=== PATIENT | male | born 1985 | race Two or more races ===

== ENCOUNTER 2022-09-02 09:30 | Emergency (ER) | payer MEDICARE, OTHER ==
[~2022-09-02] VITALS: Ht 160 cm; Wt 93.0 kg
[2022-09-02 09:39] VITALS: BP 185/109
[2022-09-02 10:20] LABS: Urine Bacteria NONE SEEN /hpf (None Seen); Urine Blood Negative /uL (Negative); Urine Specific Gravity 1.013 (1.001-1.035); Urine WBC 1 /hpf (0 - 3)
[2022-09-02 10:20] LABS: Basophils # (auto) 0.1 10 ^3/uL (0-0.2); Basophils % (auto) 0.8 % (0.0-2.0); Eosinophils # (auto) 0.1 10 ^3/uL (0-0.8); Eosinophils % (auto) 0.8 % (0.0-7.0); Hematocrit 41.3 % (41.0-53.0); Hemoglobin 14.3 g/dL (13.5-17.5); Lymphocytes % (auto) 14.2 % (10.0-50.0); Mean Corpuscular Hemoglobin 30.8 pg (28.0-32.0); Mean Corpuscular Hgb Conc. 34.5 g/dL (32.0-36.0); Mean Corpuscular Volume 89.1 fL (80.0-100.0); Monocytes # (auto) 0.6 10 ^3/uL (0-1.3); Monocytes % (auto) 8.6 % (0.0-12.0); Neutrophils # (auto) 5.2 10 ^3/uL (1.6-8.6); Neutrophils % (auto) 75.6 % (37.0-80.0); Red Blood Cells 4.63 10^6/uL (4.5-5.90); Red Cell Distribution Width 13.5 % (11.8-14.3); White Blood Cell 6.9 10^3/uL (4.4-10.8)
[2022-09-02 10:32] LABS: Calcium 8.6 mg/dL (8.5-10.1); Potassium 3.8 mmol/L (3.5-5.1)
[2022-09-02 10:35] LABS: BUN/Creatinine Ratio 15.4; Bilirubin, Total 0.6 mg/dL (0.2-1.0); Total Protein 7.7 g/dL (6.4-8.2)
[2022-09-02] MEDS ORDERED: FOLITAB22 PO (15:22)
[2022-09-02] MEDS ORDERED: METO-281 PO (15:22)
[2022-09-02] MEDS ORDERED: BISM262C44 PO (15:22)
[2022-09-02] MEDS ORDERED: OMEP-263 PO (15:22)
== END 2022-09-02 15:44 | disposition home or self-care (01) ==
LOC: ER 09:30
DX: K52.9 Noninfective gastroenteritis and colitis, unspecified (principal); F10.10 Alcohol abuse, uncomplicated; Y90.9 Presence of alcohol in blood, level not specified
CPT/HCPCS: 36415; 80053; 81001; 85025; 86850; 86900; 86901

== ENCOUNTER 2023-06-15 20:00 | Inpatient (IN) | payer MEDICARE, OTHER ==
[~2023-06-15] VITALS: Ht 160 cm; Wt 90.0 kg
[~2023-06-15 20:00] MED LIST: BISM262C44 PO; FOLITAB22 PO; METO-281 PO; OMEP-448 PO
[2023-06-15 21:00] VITALS: PULSE 130; RESP 30; O2SAT 96
[2023-06-15 21:10] LABS: Basophils # (auto) 0.1 10 ^3/uL (0-0.2); Basophils % (auto) 1.4 % (0.0-2.0); Eosinophils # (auto) 0 10 ^3/uL (0-0.8); Eosinophils % (auto) 0.2 % (0.0-7.0); Hematocrit 49.7 % (41.0-53.0); Hemoglobin 16.8 g/dL (13.5-17.5); Lymphocytes # (auto) 0.4 10 ^3/uL (0.4-5.4); Lymphocytes % (auto) 3.8 % (10.0-50.0); Mean Corpuscular Hemoglobin 31.2 pg (28.0-32.0); Mean Corpuscular Hgb Conc. 33.7 g/dL (32.0-36.0); Mean Corpuscular Volume 92.5 fL (80.0-100.0); Monocytes # (auto) 0.8 10 ^3/uL (0-1.3); Monocytes % (auto) 9.1 % (0.0-12.0); Neutrophils # (auto) 7.8 10 ^3/uL (1.6-8.6); Neutrophils % (auto) 85.5 % (37.0-80.0); Nucleated Red Blood Cells % 0.1 %; Red Blood Cells 5.38 10^6/uL (4.5-5.90); Red Cell Distribution Width 14.9 % (11.8-14.3); White Blood Cell 9.1 10^3/uL (4.4-10.8)
[2023-06-15 21:25] LABS: Albumin 3.9 g/dL (3.4-5.0); Anion Gap 11 (5-15); Blood Urea Nitrogen 3 mg/dL (7-18); Calcium 8.7 mg/dL (8.5-10.1); Carbon Dioxide 26 mmol/L (21-32); Chloride 99 mmol/L (98-107); Glucose 125 mg/dL (74-106); Potassium 3.3 mmol/L (3.5-5.1); Sodium 136 mmol/L (136-145)
[2023-06-15 21:27] LABS: Alanine Aminotransferase 94 U/L (16-61); Aspartate Aminotransferase 110 U/L (15-37); GFR African American 193 mL/min; GFR Non-African American 159 mL/min
[2023-06-15 21:29] LABS: Alkaline Phosphatase 105 U/L (45-117)
[2023-06-15 22:36] LABS: Blood Alcohol < 3.0 mg/dL (<10)
[2023-06-16] MEDS ORDERED: LACTATED RINGER'S 1,000 ML IV ONE (03:30)
[2023-06-16] MEDS ORDERED: LORazepam 2MG/ML-1ML VIAL IV ONE ×2 (03:30→14:15)
[2023-06-16] MEDS ORDERED: HYDROcodone-ACET 5/325MG TAB PO PRN (04:00)
[2023-06-16] MEDS ORDERED: LORazepam 2MG/ML-1ML VIAL IV PRN (04:00)
[2023-06-16] MEDS ORDERED: ACETAMINOPHEN 325 MG TAB PO PRN (04:00)
[2023-06-16] MEDS ORDERED: ONDANSETRON HCL 4 MG/2 ML VIAL IV PRN (04:00)
[2023-06-16] MEDS ORDERED: NITROGLYCERIN 0.4 MG SL TAB SL PRN (04:00)
[2023-06-16] MEDS ORDERED: MORPHINE SULFATE INJ 2 MG/ml SYRG IV PRN (04:00)
[2023-06-16] MEDS ORDERED: DOCUSATE SOD 100 MG CAP PO PRN (04:00)
[2023-06-16 04:46] LABS: Basophils # (auto) 0.1 10 ^3/uL (0-0.2); Basophils % (auto) 0.7 % (0.0-2.0); Eosinophils # (auto) 0 10 ^3/uL (0-0.8); Eosinophils % (auto) 0.2 % (0.0-7.0); Hematocrit 48.3 % (41.0-53.0); Hemoglobin 16.6 g/dL (13.5-17.5); Lymphocytes # (auto) 0.5 10 ^3/uL (0.4-5.4); Lymphocytes % (auto) 6.2 % (10.0-50.0); Mean Corpuscular Hemoglobin 31.8 pg (28.0-32.0); Mean Corpuscular Hgb Conc. 34.4 g/dL (32.0-36.0); Mean Corpuscular Volume 92.2 fL (80.0-100.0); Monocytes # (auto) 0.9 10 ^3/uL (0-1.3); Monocytes % (auto) 11.1 % (0.0-12.0); Neutrophils # (auto) 6.8 10 ^3/uL (1.6-8.6); Neutrophils % (auto) 81.8 % (37.0-80.0); Red Blood Cells 5.24 10^6/uL (4.5-5.90); Red Cell Distribution Width 14.5 % (11.8-14.3); White Blood Cell 8.3 10^3/uL (4.4-10.8)
[2023-06-16 05:01] LABS: Potassium 3.4 mmol/L (3.5-5.1)
[2023-06-16 05:12] LABS: Albumin 3.7 g/dL (3.4-5.0); BUN/Creatinine Ratio 5.6 (10.0-20.0); Calcium 8.7 mg/dL (8.5-10.1)
[2023-06-16 05:22] LABS: Bilirubin, Total 1.1 mg/dL (0.2-1.0); Total Protein 7.9 g/dL (6.4-8.2)
[2023-06-16] MEDS ORDERED: hydrALAZINE HCL 20 MG/ML VL IV PRN (05:45)
[2023-06-16] MEDS: SODIUM CHLORIDE 0.9% 1,000 ML IV SCH ×2 (06:18→11:21)
[2023-06-16 08:39] LABS: Urine Bacteria NONE SEEN /hpf (None Seen); Urine Blood Negative /uL (Negative); Urine Hyaline Cast FEW /lpf (0 - 2); Urine Mucus FEW (None Seen); Urine Specific Gravity 1.018 (1.001-1.035); Urine WBC 4 /hpf (0 - 3)
[2023-06-16 08:54] LABS: Alcohol, Urine < 3.0 mg/dL (0-10); Amphetamine Screen, Urine NEGATIVE (NEGATIVE); Barbiturate Scree,Urine NEGATIVE (NEGATIVE); Benzodiazephine Screen, Urine NEGATIVE (NEGATIVE); Cannabinoid Screen, Urine NEGATIVE (NEGATIVE); Cocaine Screen, Urine NEGATIVE (NEGATIVE); Opiate Scree,Urine NEGATIVE (NEGATIVE); Phencyclidine Screen, Urine NEGATIVE (NEGATIVE)
[2023-06-16] MEDS: FAMOTIDINE (10MG/ML) 2ML VL IV SCH ×2 (11:18→22:17)
[2023-06-16] MEDS: FOLIC ACID 1 MG, MULTIPLE VITAMIN 10 ML, MAGNESIUM SULF SDV 50% 8 MEQ, THIAMINE INJ 100... INJ SCH ×5 (12:00)
[2023-06-16 12:09] VITALS: PULSE 22; RESP 22; O2SAT 96
[2023-06-16] MEDS ORDERED: POTASSIUM CHL 20 Meq TABLET PO ONE (13:45)
[2023-06-16] MEDS ORDERED: LORazepam 0.5 MG TAB PO PRN (14:15)
[2023-06-16 19:45] VITALS: PULSE 95; RESP 23; O2SAT 95
[2023-06-16 21:37] VITALS: PULSE 94; RESP 19; O2SAT 99
[2023-06-17 05:00] VITALS: BP 149/103; PULSE 96; RESP 17; TEMP 98.2; O2SAT 96
[2023-06-17 06:03] LABS: Basophils # (auto) 0.1 10 ^3/uL (0-0.2); Basophils % (auto) 0.8 % (0.0-2.0); Eosinophils # (auto) 0.2 10 ^3/uL (0-0.8); Hematocrit 47.7 % (41.0-53.0); Hemoglobin 16.6 g/dL (13.5-17.5); Lymphocytes # (auto) 0.8 10 ^3/uL (0.4-5.4); Lymphocytes % (auto) 10.7 % (10.0-50.0); Mean Corpuscular Hemoglobin 31.9 pg (28.0-32.0); Mean Corpuscular Hgb Conc. 34.7 g/dL (32.0-36.0); Mean Corpuscular Volume 91.9 fL (80.0-100.0); Monocytes # (auto) 0.9 10 ^3/uL (0-1.3); Monocytes % (auto) 11.3 % (0.0-12.0); Neutrophils # (auto) 5.9 10 ^3/uL (1.6-8.6); Neutrophils % (auto) 75.2 % (37.0-80.0); Nucleated Red Blood Cells % 0.1 %; Red Blood Cells 5.19 10^6/uL (4.5-5.90); Red Cell Distribution Width 14.5 % (11.8-14.3); White Blood Cell 7.8 10^3/uL (4.4-10.8)
[2023-06-17 06:24] LABS: Potassium 3.5 mmol/L (3.5-5.1)
[2023-06-17 06:32] LABS: Albumin 3.3 g/dL (3.4-5.0); BUN/Creatinine Ratio 10.5 (10.0-20.0); Bilirubin, Total 1.1 mg/dL (0.2-1.0); Calcium 8.4 mg/dL (8.5-10.1); Magnesium 2.8 mg/dL (1.6-2.6); Total Protein 7.5 g/dL (6.4-8.2)
[2023-06-17 08:00] VITALS: BP 141/100; PULSE 120; PULSE 95; RESP 20; TEMP 98.9; O2SAT 95
[2023-06-17 12:00] VITALS: BP 149/86; PULSE 90; RESP 20; TEMP 97.6; O2SAT 96
[2023-06-17] MEDS: FOLIC ACID 1 MG, MULTIPLE VITAMIN 10 ML, MAGNESIUM SULF SDV 50% 8 MEQ, THIAMINE INJ 100... INJ SCH ×5 (12:13)
[2023-06-17] MEDS: SODIUM CHLORIDE 0.9% 1,000 ML IV SCH (13:16)
[2023-06-17 16:00] VITALS: BP 149/90; PULSE 111; RESP 20; TEMP 98.3; O2SAT 94
== END 2023-06-17 17:49 | disposition left against medical advice (07) | DRG 101 ==
LOC: ER 20:00 → EDBD 20:00 → TELE 06-16 03:53 → TELE-WESTW 06-16 21:19
PROVIDERS: ADMIT Nurse Practitioner Acute Care; ATTEND Nurse Practitioner Acute Care
DX: G40.401 Other generalized epilepsy and epileptic syndromes, not intractable, with status epilepticus (principal); F10.139 Alcohol abuse with withdrawal, unspecified; E87.6 Hypokalemia; F41.9 Anxiety disorder, unspecified; G83.21 Monoplegia of upper limb affecting right dominant side; I10 Essential (primary) hypertension; K52.9 Noninfective gastroenteritis and colitis, unspecified; Y90.9 Presence of alcohol in blood, level not specified; F17.200 Nicotine dependence, unspecified, uncomplicated; E66.9 Obesity, unspecified; Z53.29 Procedure and treatment not carried out because of patient's decision for other reasons; S09.90XA Unspecified injury of head, initial encounter; Z87.820 Personal history of traumatic brain injury; V89.2XXA Person injured in unspecified motor-vehicle accident, traffic, initial encounter; Y92.410 Unspecified street and highway as the place of occurrence of the external cause; Z68.35 Body mass index [BMI] 35.0-35.9, adult
CPT/HCPCS: 36415; 70450; 71045; 80053; 80307; 80320; 81001; 83735; 85025; 93005; 95819; 96361; 96365; 96375; G0378; J2405; J3490

== ENCOUNTER 2024-11-21 22:39 | Inpatient (IN) | payer MEDICARE, OTHER ==
[~2024-11-21] VITALS: Ht 172.7 cm; Wt 90.9 kg
--- NOTE | 2024-11-21 23:08 | ED.PDOC ---
Altered Mental Status HPI Comments 39-year-old male came to ER via EMS alcohol intoxication. Patient known chronic alcoholic, has been said to be binge drinking since the new year 4 days ago. Was seen by family members laying unresponsive even to sternal stimuli, intoxicated with alcohol. Patient brought to ER for for further evaluation and management. 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 Allergies: Coded Allergies: NO KNOWN ALLERGIES (Unverified , 09/02/22) Home Meds Active Scripts Bismuth Subsalicylate (PEPTO-BISMOL TO-GO) 262 Mg Chw, 262 MG PO TID for 30 D ays, #90 TAB.CHEW Prov:SINDI VASQUES MD 09/02/22 Folic Nelp-Cbguozdrpp-Qumhmsfx (Folbic) Tab, 1 TAB PO DAILY for 90 Days, #90 TAB 1 Refill Prov:SINDI VASQUES MD 09/02/22 Omeprazole (Omeprazole Dr) 40 Mg Cap, 40 MG PO DAILY for 30 Days, #30 CAP Prov:SINDI VASQUES MD 09/02/22 Metoclopramide Hcl (Reglan) 10 Mg Tab, 10 MG PO BID for 10 Days, #20 TAB Prov:SINDI VASQUES MD 09/02/22 Information Source: Emergency Med Personnel Mode of Arrival: EMS Severity: Unable to Care for Self, Unresponsive Timing: Hours Duration: Since onset Quality: Decreased Alertness, Change in Behavior, Confusion Past Medical History PAST MEDICAL HISTORY: Denies Surgical History: Denies all surgeries Family History Family History: Reviewed,noncontributory to illness Social History Smoker: Non-Smoker Alcohol: Heavy Drugs: Denies Drug Use Lives In: Home Unable to Obtain due to: Altered Mental Status, Other (Unresponsive intoxicated of alcohol) Physical Exam General Appearance: Normal, Severe Distress HEENT: Normal ENT Inspection, Pharynx Normal, TMs Normal Neck: Full Range of Motion, Non-Tender, Normal, Normal Inspection Respiratory: Chest Non-Tender, Lungs Clear, No Accessory Muscle Use, No Respiratory Distress, Normal Breath Sounds, Other (Alcohol on his breath. 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 Was a procedure done?: No Differential Diagnosis (ALOC) Differential Diagnosis: Encephalopathy, Hypoxemia, Seizure, CVA, ETOH Intoxication X-Ray, Labs, Meds, VS Vital Signs Date Time Temp Pulse Resp B/P (MAP) Pulse Ox O2 Delivery O2 Flow Rate FiO2 11/21/24 23:08 80 11/21/24 22:41 80 11/21/24 22:40 97.9 90 19 127/83 (98) 93 Lab Test 11/22/24 01:32 11/22/24 00:35 Range/Units Troponin I High Sensitivity < 3 L < 3 L </=54 ng/L White Blood Count 8.5 4.4-10.8 10^3/uL Red Blood Count 5.41 4.5-5.90 10^6/uL Hemoglobin 16.3 13.5-17.5 g/dL Hematocrit 46.7 41.0-53.0 % Mean Corpuscular Volume 86.3 80.0-100.0 fL Mean Corpuscular Hemoglobin 30.2 28.0-32.0 pg Mean Corpuscular Hemoglobin Concent 35.0 32.0-36.0 g/dL Red Cell Distribution Width 13.6 11.8-14.3 % Platelet Count 232 140-450 10^3/uL Mean Platelet Volume 8.0 6.9-10.8 fL Neutrophils (%) (Auto) 70.6 37.0-80.0 % Lymphocytes (%) (Auto) 25.5 10.0-50.0 % Monocytes (%) (Auto) 3.4 0.0-12.0 % Eosinophils (%) (Auto) 0.0 0.0-7.0 % Basophils (%) (Auto) 0.5 0.0-2.0 % Neutrophils # (Auto) 6.0 1.6-8.6 10 ^3/uL Lymphocytes # (Auto) 2.2 0.4-5.4 10 ^3/uL Monocytes # (Auto) 0.3 0-1.3 10 ^3/uL Eosinophils # (Auto) 0 0-0.8 10 ^3/uL Basophils # (Auto) 0 0-0.2 10 ^3/uL Nucleated Red Blood Cells 0.0 % Sodium Level 136 136-145 mmol/L Potassium Level 4.1 3.5-5.1 mmol/L Chloride Level 100 98-107 mmol/L Carbon Dioxide Level 26 20-31 mmol/L Anion Gap 10 5-15 Blood Urea Nitrogen < 5 L 9-23 mg/dL Creatinine 0.59 L 0.700-1.30 mg/dL Glomerular Filtration Rate Calc 126 >90 mL/min BUN/Creatinine Ratio 8.5 L 10.0-20.0 Serum Glucose 130 H 74-106 mg/dL Calcium Level 9.6 8.7-10.4 mg/dL Total Bilirubin 0.4 0.2-1.0 mg/dL Aspartate Amino Transferase (AST) 23 13-40 U/L Alanine Aminotransferase (ALT) 39 7-40 U/L Alkaline Phosphatase 73 46-116 U/L Total Protein 7.7 5.7-8.2 g/dL Albumin 4.8 3.2-4.8 g/dL Plasma/Serum Blood Alcohol 443.3 *H <10 mg/dL First troponin is three. Second troponin is three. EKG shows no signs of ischemia BUN five and creatinine is 0.6. Alcohol level is 443. Urine drug screen is pending. Head CT is ordered and pending. The patient will be admitted to the hospitalist for further evaluation and care. Time of 1ST Reevaluation: 23:03 Reevaluation 1ST: Unchanged Patient Education/Counseling: Other (Intoxicated with alcohol), Pt Unresponsive Family Education/Counseling: No Family Present Departure 1 Departure Time of Disposition: 02:20 Impression: Primary Impression: Altered mental status Qualified Codes: R40.4 - Transient alteration of awareness Additional Impressions: Metabolic encephalopathy Altered level of consciousness Alcohol intoxication Qualified Codes: F10.929 - Alcohol use, unspecified with intoxication, unspecified Disposition: 09 ADMITTED INPATIENT Admit to: Tele Condition: Guarded Critical Care Note Critical Care Time?: Yes (35 min-critical care time only) Critical care comment: Altered level of consciousness Stability Stability form required: No Heart Score Heart Score: Heart Score Response (Comments) Value History N/A 0 EKG N/A 0 Age N/A 0 Risk Factors N/A 0 Troponin N/A 0 Total 0 I personally scribed for TUCKER YEPEZ MD ([email or web address]) on 11/21/24 at 23:08. Electronically submitted by Dillon Samaniego ([email or web address]). TUCKER YEPEZ MD Nov 21, 2024 23:08
[2024-11-22 00:49] LABS: Basophils # (auto) 0 10 ^3/uL (0-0.2); Basophils % (auto) 0.5 % (0.0-2.0); Eosinophils # (auto) 0 10 ^3/uL (0-0.8); Hematocrit 46.7 % (41.0-53.0); Hemoglobin 16.3 g/dL (13.5-17.5); Lymphocytes # (auto) 2.2 10 ^3/uL (0.4-5.4); Lymphocytes % (auto) 25.5 % (10.0-50.0); Mean Corpuscular Hemoglobin 30.2 pg (28.0-32.0); Mean Corpuscular Volume 86.3 fL (80.0-100.0); Monocytes # (auto) 0.3 10 ^3/uL (0-1.3); Monocytes % (auto) 3.4 % (0.0-12.0); Neutrophils % (auto) 70.6 % (37.0-80.0); Platelet Count (auto) 232 10^3/uL (140-450); Red Blood Cells 5.41 10^6/uL (4.5-5.90); Red Cell Distribution Width 13.6 % (11.8-14.3); White Blood Cell 8.5 10^3/uL (4.4-10.8)
[2024-11-22 01:05] LABS: Alanine Aminotransferase 39 U/L (7-40); Alkaline Phosphatase 73 U/L (46-116); Anion Gap 10 (5-15); Aspartate Aminotransferase 23 U/L (13-40); Bilirubin, Total 0.4 mg/dL (0.2-1.0); Calcium 9.6 mg/dL (8.7-10.4); Carbon Dioxide 26 mmol/L (20-31); Chloride 100 mmol/L (98-107); Potassium 4.1 mmol/L (3.5-5.1); Total Protein 7.7 g/dL (5.7-8.2)
[2024-11-22 01:20] LABS: Albumin 4.8 g/dL (3.2-4.8); Glucose 130 mg/dL (74-106); Sodium 136 mmol/L (136-145)
[2024-11-22 01:34] LABS: BUN/Creatinine Ratio 8.5 (10.0-20.0); Blood Urea Nitrogen < 5 mg/dL (9-23)
[2024-11-22 01:47] LABS: Blood Alcohol 443.3 mg/dL (<10)
[2024-11-22] MEDS: SODIUM CHLORIDE 0.9% 1,000 ML IV ONE ×3 (02:56)
--- NOTE | 2024-11-22 03:32 | DVH ---
Examination: HWOCT CLINICAL INDICATION: etoh abuse COMPARISON: None. CONTRAST USED: None. TECHNIQUE: The examination was performed obtaining 5 mm slices without contrast. CT scan done accor ding to ALARA (As Low as Reasonably Achievable). Multiplanar reconstructions were obtained. FINDINGS: SUPRATENTORIAL BRAIN: Cerebral Hemispheres: There is no midline shift or mass effect, intra or extra-axial fluid collectio ns or hemorrhage. Periventricular White Matter/Basal Ganglia: No abnormal areas of altered attenuation within the periv entricular white matter or basal ganglia. POSTERIOR FOSSA: The brainstem is normal and the visualized cerebellar hemispheres are unremarkable. VENTRICULAR SYSTEM: The ventricular system shows normal appearance. There is no evidence of hydroce phalus or transependymal flow of cerebrospinal fluid. SKULL BASE AND PARASELLAR REGION: The skull base is normal with no parasellar masses or abnormalitie s identified. CALVARIUM AND SCALP REGION: Right wufugx-hbtajfv-dgiuiqjv craniotomy and cranioplasty status. Simil ar left fronto temporo-parietal craniotomy and cranioplasty status. No evidence of osteomyelitis. PARANASAL SINUSES: No significant inflammatory changes are identified in the paranasal sinuses. IMPRESSION: 1. Bilateral adcmli-nzdniws-bqgcjqia craniotomy and cranioplasty status without any osteomyelitis. 2. No intra-axial or extra-axial collection or any mass effect/midline shift. Electronically Signed 11/22/2024 03:32 Leslye Coelho
[2024-11-22 04:01] VITALS: TEMP 98
[2024-11-22 09:21] LABS: Urine Bacteria None Seen /hpf (None Seen); Urine WBC None Seen /hpf (0 - 3)
[2024-11-22 09:28] LABS: Urine Blood Negative /uL (Negative); Urine Clarity Clear (Clear); Urine Color Light-Yellow (Yellow); Urine Protein, UAD Negative (Negative); Urine Specific Gravity 1.009 (1.001-1.035); Urine Squamous Epithelial Cell None Seen /hpf (<5); Urine Urobilinogen Normal (Negative)
[2024-11-22 09:50] LABS: Amphetamine Screen, Urine Neg (NEGATIVE); Barbiturate Scree,Urine Neg (NEGATIVE); Benzodiazephine Screen, Urine Neg (NEGATIVE); Cannabinoid Screen, Urine Neg (NEGATIVE); Cocaine Screen, Urine Neg (NEGATIVE); Opiate Scree,Urine Neg (NEGATIVE); Phencyclidine Screen, Urine Neg (NEGATIVE)
[2024-11-22 09:58] VITALS: BP 150/85; PULSE 102; RESP 20; O2SAT 94
[2024-11-22] MEDS ORDERED: LORazepam 2MG/ML-1ML VIAL IV SCH (13:45)
[2024-11-22] MEDS ORDERED: MULTIPLE VITAMIN TAB PO ONE (13:45)
[2024-11-22] MEDS ORDERED: THIAMINE HCL 100 MG TAB PO ONE (13:45)
[2024-11-22] MEDS ORDERED: FOLIC ACID 1 MG TAB PO ONE (13:45)
[2024-11-22] MEDS ORDERED: SODIUM CHLORIDE 0.9% 1,000 ML IV SCH (13:45)
[2024-11-22] MEDS ORDERED: ONDANSETRON HCL 4 MG/2 ML VIAL IV PRN (13:45)
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
[2024-11-23] MEDS ORDERED: PANTOPRAZOLE 40 MG TAB PO SCH (10:00)
[2024-11-23] MEDS ORDERED: THIAMINE HCL 100 MG TAB PO SCH (10:00)
[2024-11-23] MEDS ORDERED: FOLIC ACID 1 MG TAB PO SCH (10:00)
[2024-11-23] MEDS ORDERED: MULTIPLE VITAMIN TAB PO SCH (10:00)
--- NOTE | 2024-11-23 14:05 | ECG ---
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
== END 2024-11-22 14:37 | disposition left against medical advice (07) | DRG 917 ==
LOC: EDBD 22:39 → ER 22:39 → TELE 11-22 13:42
PROVIDERS: ADMIT Registered Nurse; ATTEND Registered Nurse
DX: T51.0X1A Toxic effect of ethanol, accidental (unintentional), initial encounter (principal); G92.8 Other toxic encephalopathy; F10.229 Alcohol dependence with intoxication, unspecified; Z53.29 Procedure and treatment not carried out because of patient's decision for other reasons; E66.9 Obesity, unspecified; Z79.899 Other long term (current) drug therapy; Z68.30 Body mass index [BMI] 30.0-30.9, adult; Y90.8 Blood alcohol level of 240 mg/100 ml or more; Y92.89 Other specified places as the place of occurrence of the external cause
CPT/HCPCS: 36415; 70450; 80053; 80307; 80320; 81001; 83735; 84484; 85025; 99291; G0378